=== PATIENT | female | born 2000 | race African-American/Black ===

== ENCOUNTER 2022-09-05 20:22 | Emergency (ER) | payer OTHER, SELFPAY ==
--- NOTE | ~2022-09-05 | XR_ITS ---
EXAMINATION: XR FINGER, RIGHT CLINICAL INFORMATION: Fx of 5th finger, Splint placement. COMPARISON: 09/05/2022 TECHNIQUE: 4 views of the right small finger. FINDINGS: Improved alignment of the fracture at the small finger proximal phalangeal base with slight persistent apex volar and apex medial angulation. Soft tissues are swollen. Splint material is in place. No new fractures are identified. XR/XR finger RT min 2V IMPRESSION: Improved alignment of the small finger proximal phalangeal base fracture status post reduction and splinting.
--- NOTE | ~2022-09-05 | XR_ITS ---
EXAMINATION: XR FINGER, RIGHT CLINICAL INFORMATION: Fifth finger fracture COMPARISON: Right hand films earlier this evening one hour ago TECHNIQUE: 3 views of the right fifth digit. FINDINGS: A splint is now in place. There is been no interval change in the appearance of the ulnar and posterior angulated fracture through the base of the proximal phalanx fifth digit. No dislocation is seen. XR/XR finger RT min 2V IMPRESSION: No interval change in the appearance of the fracture through the base of the proximal phalanx fifth digit aside from the presence of a splint.
--- NOTE | ~2022-09-05 | XR_ITS ---
EXAMINATION: XR HAND, RIGHT CLINICAL INFORMATION: Fifth digit dislocation. COMPARISON: None TECHNIQUE: PA, lateral, and oblique views of the right hand. FINDINGS: Comminuted fracture of the proximal fifth phalanx with posterior angulation of the distal fracture fragment. No other fractures. Carpal rows maintained. Soft tissue swelling/hematoma around the fracture site. No unexpected radiopaque foreign bodies. XR/XR hand RT 2V IMPRESSION: Comminuted fracture of the proximal fifth phalanx.
[2022-09-05 20:25] VITALS: BP 132/78; PULSE 69; RESP 18; TEMP 36.8; O2SAT 100; BMI 29.9
--- NOTE | 2022-09-05 20:28 | ED_ITS ---
HPI - Extremity Problem General Chief complaint: Extremity Injury, Upper <ELVA Frost - Last Filed: 09/05/22 20:29> Stated complaint: right hand dislocated finger <ELVA Frost - Last Filed: 09/05/22 20:29> Time Seen by Provider: 09/05/22 21:08 <ELVA Frost - Last Filed: 09/05/22 20:29> Source: patient <Jory Guzman MD - Last Filed: 09/05/22 22:09> Mode of arrival: ambulatory <Jory Guzman MD - Last Filed: 09/05/22 22:09> History of Present Illness HPI Narrative: 22-year-old female who presents after sustaining a basketball injury and complaining of pain in swelling at her right 5th digit as well as the removal of her fingernail from the 4th digit. <Jory Guzman MD - Last Filed: 09/05/22 22:09> Related Data Allergies/Adverse reactions: Allergies Allergy/AdvReac Type Severity Reaction Status Date / Time No Known Allergies Allergy Verified 09/05/22 20:28 <ELVA Frost - Last Filed: 09/05/22 20:29> Review of Systems Review of Systems: Pertinent positives and negatives as stated in HPI <Jory Guzman MD - Last Filed: 09/05/22 22:09> PMFSH Past Medical History Source: nursing notes reviewed <Jory Guzman MD - Last Filed: 09/05/22 22:09> Social History Social History: Social History Advance Directives: No <ELVA Frost - Last Filed: 09/05/22 20:29> Physical Exam Vital Signs: Vital Signs: Last Vital Signs Temp 98.3 F 09/05/22 20:25 Pulse 69 09/05/22 20:25 Resp 18 09/05/22 20:25 BP 132/78 09/05/22 20:25 Pulse Ox 100 09/05/22 20:25 O2 Del Method 09/05/22 20:25 BMI result Body Mass Index 29.9 <ELVA Frost - Last Filed: 09/05/22 20:29> Vital Signs: Last Vital Signs Temp 98.3 F 09/05/22 20:25 Pulse 69 09/05/22 20:25 Resp 18 09/05/22 20:25 BP 132/78 09/05/22 20:25 Pulse Ox 100 09/05/22 20:25 O2 Del Method 09/05/22 20:25 BMI result Body Mass Index 29.9 VITAL SIGNS: Reviewed. GENERAL: Well developed, well nourished, in no acute distress. HEAD: Normocephalic/atraumatic EYES: PERRLA, EOMI LUNGS: Normal breath sounds. CARDIOVASCULAR: Regular rate and rhythm without noted murmurs ABDOMEN: Soft, non-tender, non-distended with bowel sounds. RIGHT HAND: Deformity at right 5th proximal phalanx, missing nail at right 4th nail bed. NEUROLOGIC: Alert and oriented x 4. <Jory Guzman MD - Last Filed: 09/05/22 22:09> Course Course Course Narrative: RME performed by Montse Walker PA-C. Patient is a 22 year old female p resenting to the emergency department with right 5th finger pain. Patient was playing basketball when she dislocated her right 5th finger. XR ordered. Patient placed back in the waiting room pending results and room ravailability. <ELVA Frost - Last Filed: 09/05/22 20:29> Medical Decision Making Medical Decision Making MDM Narrative: 22-year-old female with displaced fracture of right 5th proximal phalanx that was reduced after digital block applied. Splint was placed in a modified ulnar gutter fashion extending from hypothenar to beyond the right 5th digit in a slightly flexed position at the MCP. Bacitracin applied to nailbed of 4th d igit with dressing applied. Initial x-ray demonstrated that the displaced fracture was then deviated to the ulnar side, decision was made to robby splint with the ring finger and will definitely refer to orthopedics as I think this fracture will not remained stable for the duration of the healing and may require intervention. <Jory Gumzan MD - Last Filed: 09/05/22 22:09> Consult Healthcare Provider Management of the patient was discussed with: Instrument And Electrical Technician <Jory Guzman MD - Last Filed: 09/05/22 22:09> 2200: I discussed the case with the on-call orthopedic PA and provided the demographics for the patient cell that she can be scheduled for an appointment and I discussed the fact that I felt pains may be warranted given the relative instability of the reduction. <Jory Guzman MD - Last Filed: 03/21 22:09> Radiology Impression Radiologist Impression: My interpretation is in agreement with radiologist impression of the imaging study. <Jory Guzman MD - Last Filed: 09/05/22 22:09> Procedures Orthopedic Fracture Reduction Fracture #1: Time Out Performed: No <Jory Guzman MD - Last Filed: 09/05/22 22:09> Side: right <Jory Guzman MD - Last Filed: 09/05/22 22:09> Fracture Reduction Location: finger <Jory Guzman MD - Last Filed: 09/05/22 22:09> Analgesia: nerve block <Jory Guzman MD - Last Filed: 09/05/22 22:09> Technique: direct manipulation and traction/counter-traction <Jory Guzman MD - Last Filed: 09/05/22 22:09> Post Reduction X-rays Demonstrate: acceptable reduction <Jory Guzman MD - Last Filed: 09/05/22 22:09> Post-reduction neuro exam: intact <Jory Guzman MD - Last Filed: 09/05/22 22:09> Post-reduction vascular exam: intact <Jory Guzman MD - Last Filed: 09/05/22 22:09> Splint Applied: Yes <Jory Guzman MD - Last Filed: 09/05/22 22:09> Patient Tolerated Procedure: well <Jory Guzman MD - Last Filed: 09/05/22 22:09> Additional Comments: 5ml lidocaine instilled for digital block <Jory Guzman MD - Last Filed: 09/05/22 22:09> Discharge Plan Discharge Clinical Impression: Displaced fracture of proximal phalanx of finger of right hand <ELVA Frost - Last Filed: 09/05/22 20:29> Patient Disposition: Home, Self-Care <ELVA Frost - Last Filed: 09/05/22 20:29> Instructions: Closed Reduction (ED), Finger Fracture (ED), Splint Care (ED) <ELVA Frost - Last Filed: 09/05/22 20:29> Additional Instructions: 1. Tylenol 1000 mg, orally, every 6 hours as needed for pain control. Do not exceed 4000 mg within 24 hours. 2. Ibuprofen 400 mg, orally with milk or food, every 6 hours as needed for pain control. You may take this medication with Tylenol for improved symptom relief. 3. Elevation of the extremity and application of ice will be additional friends in pain control, as well as control of swelling. 4. You have been given a referral to follow-up with orthopedics in should call the office on Wednesday, I have already contacted the on-call provider and they are expecting your phone call. Return to the ER for any worsening symptoms. <ELVA Frost - Last Filed: 09/05/22 20:29> Referrals: Lydia Denton MD [Physician] - (22-year-old female, right-hand dominant, with right 5th proximal phalanx fracture, some difficulty in maintaining stability, placed in modified ulnar gutter that included 4th digit for additional stability.) <ELVA Frost - Last Filed: 09/05/22 20:29> Stand Alone Forms: Work/School Release <ELVA Frost - Last Filed: 09/05/22 20:29>
[2022-09-05] MEDS: Acetaminophen 325 MG TABLET 975 MG PO (22:19)
[2022-09-05] MEDS: Ibuprofen 400 MG TABLET PO (22:20)
[2022-09-05] MEDS: Lidocaine HCl 1 % MPF 2 ML VIAL 4 ML INFILTRATI (22:21)
== END 2022-09-05 22:31 | disposition home or self-care (01) ==
PROVIDERS: Emergency Provider Student in an Organized Health Care Education/Training Program
DX: S62.616A Displaced fracture of proximal phalanx of right little finger, initial encounter for closed fracture (principal); X50.9XXA Other and unspecified overexertion or strenuous movements or postures, initial encounter; Y93.67 Activity, basketball; Y92.310 Basketball court as the place of occurrence of the external cause; Y99.9 Unspecified external cause status
CPT/HCPCS: 26725; 64450; 73120; 73140; 99283; 99284

== ENCOUNTER 2022-09-07 14:25 | Outpatient (REF) | payer OTHER, SELFPAY | END 2022-09-07 14:26 | disposition home or self-care (01) | LOC: HO.HOSX 14:25 | PROVIDERS: Visit Provider Orthopaedic Surgery | DX: Z13.89 Encounter for screening for other disorder (principal) ==

== ENCOUNTER 2022-09-08 10:48 | Outpatient (REF) | payer OTHER, SELFPAY ==
--- NOTE | ~2022-09-08 | XR_ITS ---
EXAMINATION: XR HAND, RIGHT CLINICAL INFORMATION: Pain in right hand. Prior fifth proximal phalanx fracture. COMPARISON: 09/05/2022. TECHNIQUE: PA, lateral, and oblique views of the right hand. FINDINGS: Overlying splint removed. The mildly comminuted oblique fracture at the base of the fifth proximal phalanx is again demonstrated with residual ulnar angulation of the distal bone similar to the postreduction images of 09/05/2022. No significant manifestations of healing are seen at this time. The bones of the hand are otherwise unremarkable. Cosmetic radiopaque densities are seen in the third digit nail XR/XR hand RT min 3V IMPRESSION: Mildly angulated fracture base fifth proximal phalanx is similar to the postreduction images of 09/05/2022.
== END 2022-09-08 10:49 | disposition home or self-care (01) ==
LOC: HO.HOSX 10:48
PROVIDERS: Visit Provider Orthopaedic Surgery
DX: S62.616A Displaced fracture of proximal phalanx of right little finger, initial encounter for closed fracture (principal); X58.XXXA Exposure to other specified factors, initial encounter; Y93.9 Activity, unspecified; Y92.9 Unspecified place or not applicable; Y99.9 Unspecified external cause status
CPT/HCPCS: 73130; 99202

== ENCOUNTER 2022-09-14 07:53 | Day surgery (SDC) | payer OTHER, SELFPAY ==
--- NOTE | 2022-09-11 10:27 | P.CONAN_ITS ---
Documented by User: Charo Chandler NP 09/11/22 10:27 HPI - Anesthesia Eval Consult details Narrative: 22yo F for Right Small Finger Fx Closed Pinning verses ORIF [facility] Active Problems Active Problems: All Active Problems (Updated 09/08/22 @ 13:14 by Lydia Denton MD) Fracture of proximal phalanx of right little finger (Acute) Surgical History Surgical History Hx of section Social History Social History Patient Tobacco Use Status: Never used Tobacco Substance Use Frequency: Occasionally Are you DNR?: No Advance Directives: No Advance Directives Information Provided: Yes Nutrition Risks: No Nutritional Risk FDLMP: 08/26/22 Current occupational status: employed Current occupation: residential counselor/ rt hand Meds Allergies Allergy/AdvReac Type Severity Reaction Status Date / Time No Known Allergies Allergy Verified 09/14/22 07:59 Home Medications Medication Instructions Recorded Confirmed Last Taken Type No Known Home Meds 09/08/22 09/08/22 Unknown History Exam Exam Date and Time: September 11, 2022 1027 Assessment and Plan Assessment Anesthesia Assessment: Chart Reviewed Documented by User: Cristian Bazan MD 09/14/22 08:13 PMF Family History Family history of problems with anesthesia: No Surgical History Surgical History Hx of section History of Problems with Anesthesia: No Social History Social History Patient Tobacco Use Status: Never used Tobacco Substance Use Frequency: Occasionally Are you DNR?: No Advance Directives: No Advance Directives Information Provided: Yes Nutrition Risks: No Nutritional Risk FDLMP: 08/26/22 Current occupational status: employed Current occupation: residential counselor/ rt hand Meds Allergies Allergy/AdvReac Type Severity Reaction Status Date / Time No Known Allergies Allergy Verified 09/14/22 07:59 Home Medications Medication Instructions Recorded Confirmed Last Taken Type No Known Home Meds 09/08/22 09/08/22 Unknown History Exam Airway Mallampati Class: II TM Dist: >3cm Neck ROM: Full Heart: rrr Lungs: cta Assessment and Plan Final Anesthetic Review Family History of Problems with Anesthesia: No History of Problems with Anesthesia: No ASA Class: I Final Preanesthetic Review: No Changes in Pt Med Stat, Meds/Allgs Chart Reviewed, Consent Obtained/Reviewed and Anes Risks/Benef Reviewed Patient Risk: Low Procedure Risk: Low Anesthetic Plan Anesthetic Plan: GA Disposition: Standard PACU
--- NOTE | ~2022-09-14 | FL_ITS ---
EXAMINATION: XR FLUOROSCOPY WITH IMAGES CLINICAL INFORMATION: Fracture fifth proximal phalanx COMPARISON: Radiographs right hand 09/08/2022, 09/05/2022 TECHNIQUE: Fluoroscopy Supervised By: Dr. Lydia Denton. Fluoroscopy Time: 17 seconds. Cumulative Dose: 0.4212 mGy. DAP: 0.0255 Gycm2. Images: 3. FINDINGS: Mildly angulated fracture base fifth proximal phalanx is reduced with 2 orthopedic pins. Alignment fracture fragments is improved, near-anatomic. No dislocation. Hardware intact. FL/FL guidance in OR IMPRESSION: Status post reduction with pinning fifth proximal phalanx fracture.
[2022-09-14 08:08] VITALS: BMI 29.9
[2022-09-14 08:16] LABS: UPreg QC Valid YES; Urine Pregnancy NEGATIVE (NEGATIVE)
[2022-09-14] MEDS: Lactated Ringers 1,000 ML 100 ML IVCONT (08:17)
--- NOTE | 2022-09-14 08:20 | MHC.SHP ---
Pre-Procedural Eval Section A Date of Service: 09/14/22 The patient is an INPATIENT: No Changes since office visit: No Cold of Flu in the past 2 weeks, No New Medical Problems, No Changes in Medication and No Patient answered all questions The History & Physical has been completed within 30 days and I have reviewed it.: Yes Section B Chief Complaint: Displaced fracture of proximal phalanx of right Allergies: Allergies Allergy/AdvReac Type Severity Reaction Status Date / Time No Known Allergies Allergy Verified 09/14/22 07:59 Plan I have reviewed the history and physical and performed a pertinent physical examination on my patient. No changes have occurred unless specified. Time Spent With Patient Time: Total time managing care of this patient today ____ minutes.
--- NOTE | 2022-09-14 08:20 | W.PM.OPN ---
Operative Note Operative Note Date of Service: 09/14/22 Narrative: Operative Note Narrative: Preop diagnosis: 1. Right small finger proximal phalanx base fracture Postop diagnosis: Same Procedure: 1. right small finger proximal phalanx fracture CRPP 2. Ulnar nerve block Surgeon: Lydia Denton MD Anesthesia: General Anesthesia Findings: finger fracture Implants: 0.045 K-wires times 2 Tourniquet time: None EBL: Minimal Specimen: None Drains: None Complications: None Disposition: Brought to the recovery room in stable condition Plan: Follow-up in 10-14 days for a wound check, postop radiographs and for placement in a short-arm finger spica cast Anticipate K-wire removal in 4 weeks based on interval bony healing Educate the patient that full fracture healing anticipated in approximately 8-12 weeks. Indications: The patient is 22 years old with right small finger proximal phalanx base fracture . The risks and benefits of operative treatment, including but not limited to risk of damage to blood vessels, nerves, tendons, infection, recurrence, delayed or nonunion of fracture, persistent pain or numbness, incomplete resolution of preoperative symptoms, or need for further surgery were discussed with the patient and they wished to proceed with surgery. Procedure: Once consent was obtained patient was brought back to the operating suite and placed in the operating table in a supine position. . Perioperative antibiotics and general anesthesia was administered by the anesthesia team. A tourniquet was applied to the proximal aspect of the right upper extremity and the limb was prepped and draped in a standard surgical fashion. Tourniquet was not inflated during the case. The FluoroScan was used during the case to assist with our fracture reduction and placement of all implants. A closed reduction was performed on the patient's right small finger proximal phalanx base fracture. A 0.045 K-wire was placed through the ulnar base of the proximal phalanx. This was advanced across the fracture site and into the shaft. A 2nd 0.045 K-wire was placed through the radial base of the proximal phalanx and similarly advanced across the fracture site and into the shaft. Fracture alignment was assessed for both angular and rotational malalignment. Once satisfied with our fracture reduction and implant placement, the K-wires were bent and cut short and pin caps applied. Final fluoroscopic images were then obtained. The wounds were copiously irrigated with normal saline. An ulnar nerve block was then performed by infiltrating about the ulnar nerve at the wrist with some 0.5% plain ropivacaine for postop pain control. A Sterile dressing and short volar splint extending to the forearm was applied. The patient appears to have tolerated the procedure well and with no complications. All digits were well vascularized at the conclusion of the case.
[2022-09-14 08:25] VITALS: BP 109/66; PULSE 74; RESP 18; TEMP 36.6; O2SAT 96
[2022-09-14 09:25] VITALS: BP 110/64; PULSE 97; RESP 16; TEMP 36.4; O2SAT 97
[2022-09-14 09:30] VITALS: BP 104/54; PULSE 79; RESP 16; O2SAT 99
[2022-09-14 09:35] VITALS: BP 107/64; PULSE 72; RESP 16; O2SAT 99
[2022-09-14 09:40] VITALS: BP 105/61; PULSE 66; RESP 16; TEMP 36.1; O2SAT 98
[2022-09-14] MEDS: Acetaminophen 325 MG TABLET 650 MG PO (09:40)
[2022-09-14] MEDS: oxyCODONE HCl Immed Release 5 MG TABLET PO (09:43)
[2022-09-14 09:55] VITALS: BP 96/64; PULSE 59; RESP 16; TEMP 36.1; O2SAT 98
== END 2022-09-14 10:49 | disposition home or self-care (01) ==
PROVIDERS: Nurse Practitioner; Visit Provider Orthopaedic Surgery
PROC: (CPT 26727; principal; 2022-09-14 09:20)
DX: S62.616A Displaced fracture of proximal phalanx of right little finger, initial encounter for closed fracture (principal); S61.304A Unspecified open wound of right ring finger with damage to nail, initial encounter; X58.XXXA Exposure to other specified factors, initial encounter; Y93.67 Activity, basketball; Y92.9 Unspecified place or not applicable; Y99.8 Other external cause status
CPT/HCPCS: 26727; 81025; J0690; J1100; J1885; J2405; J2795

== ENCOUNTER 2022-09-25 18:24 | Emergency (ER) | payer OTHER, SELFPAY ==
[2022-09-25 18:35] VITALS: BP 112/72; PULSE 68; RESP 18; TEMP 36.1; O2SAT 99; BMI 30.1
--- NOTE | 2022-09-25 18:37 | ED_ITS ---
HPI - General Adult General Chief complaint: General Medical Stated complaint: previous hand surgery, needs to be rewrapped? Time Seen by Provider: 09/25/22 18:52 Source: patient Mode of arrival: ambulatory Limitations: no limitations History of Present Illness HPI narrative: Patient is a 22 year old assigned female at with a history of a right 5th phalanx fracture with a surgery 2 weeks ago for pin placement presenting to the emergency department today for a new splint. Patient states that she got her splint wet and it cracked in half and now she needs a new splint. Patient denies any dizziness, lightheadedness, abdominal pain, nausea, vomiting, fever, chills, blurry vision, double vision, loss of vision, chest pain, difficulty breathing, shortness of breath, back pain, night sweats, pain with urination, increased urinary frequency, increased urinary urgency, blood in her urine or stool, syncope or a near syncopal episode, recent trauma or falls, bowel incontinence, bladder incontinence, bowel retention, bladder retention, or any other complaints at this time. Onset (ago): hour(s) Location: right and upper extremity Radiation: non-radiation Severity: mild Severity scale (1-10): 1 Relieving factors: none Exacerbating factors: none Associated symptoms: denies other symptoms Treatments prior to arrival: none Related Data Previous Rx's Medication Instructions Recorded hydrocodone 5 mg-acetaminophen 325 1 - 2 tab PO Q6H PRN pain #20 tabs 09/14/22 mg tablet Allergies Allergy/AdvReac Type Severity Reaction Status Date / Time No Known Allergies Allergy Verified 09/14/22 07:59 Review of Systems Constitutional: Constitutional: Reports no additional constitutional complaints, Denies chills, Denies fever(s) and Denies night sweats Eyes: Eyes: Reports no additional eye complaints, Denies blurry vision, Denies change in vision, Denies diplopia, Denies eye discharge, Denies loss of vision and Denies eye pain ENT: Denies dizziness Cardiovascular: Cardiovascular: Reports no additional cardiovascular complaints, Denies chest pain, Denies lightheadedness, Denies Loss of Consciousness and Denies dyspnea Respiratory: Respiratory: Reports no additional respiratory complaints and De nies dyspnea Gastrointestinal: Gastrointestinal: Reports no additional gastrointestinal complaints, Denies abdominal pain, Denies melena, Denies hematochezia, Denies change in bowel habits and Denies change in stool character Genitourinary: Genitourinary: Denies hematuria, Denies urinary frequency, Denies dysuria, Denies urinary incontinence, Denies urinary hesitancy and Denies urinary urgency Musculoskeletal: Musculoskeletal: Reports no additional musculoskeletal complaints, Denies numbness and Denies tingling Comments: right 5th phalanx fracture currently in splint Neurologic: Denies dizziness, Denies loss of vision, Denies numbness and Denies tingling Psychiatric: Psychiatric: Reports no additional psychiatric complaints Endocrine: Endocrine: Reports no additional endocrine complaints Hematologic/Lymphatic: Hematologic/Lymphatic: Reports no additional hematologic/lymphatic complaints Allergic/Immunologic: Allergic/Immunologic: Reports no additional allergic/immunologic complaints [facility] Past Medical History Attestation statement: The following information was validated with the patient. Source: old records reviewed and nursing notes reviewed Surgical History Hx of section Social History Social History Patient Tobacco Use Status: Never used Tobacco Advance Directives: No Advance Directives Information Provided: No Current occupational status: employed Current occupation: residential counselor/ rt hand Physical Exam ED Vital Signs: Vital Signs - 24 hr 09/25/22 18:35 Temperature 97.0 F Pulse Rate 68 Respiratory Rate 18 Blood Pressure 112/72 Pulse Oximetry 99 Oxygen Delivery Method Room Air BMI result Body Mass Index 30.1 Const General: cooperative, no acute distress, alert and awake Nutritional Appearance: well nourished Orientation/consciousness: patient oriented x3 Limitations: no limitations [facility] Head: Yes normal to inspection and Yes atraumatic Ears: hearing grossly normal bilaterally and external ears normal General nose exam: Normal external nose present, no nasal discharge noted and no epistaxis Face and sinus: Yes normal facial exam, No abrasion and No laceration Mouth: Normal oral and palatal mucosa present, no drooling and no muffled voice Eyes General: appearance normal, both eyes and all related structures Periorbital: periorbital findings normal Eyelids: Yes eyelids normal Conjunctivae: conjunctivae normal Pupils: Equal, round and reactive pupils present EOM: EOMs intact bilaterally Neck Neck: Yes normal visual inspection, Yes full ROM and Yes no lymphadenopathy Chest Chest palpation & inspection: normal inspection of the chest Resp Effort & Inspection: normal respiratory effort and able to speak in complete sentences Auscultation: clear to auscultation bilaterally Cardio Rate: regular rate Rhythm: regular rhythm GI Inspection: Yes normal to inspection Palpation (GI): Soft to palpation, not firm, nontender, no guarding and not rigid Neuro General: patient oriented x3 and moves all extremities Cranial nerves: Yes Equal, round and reactive pupils present Cognition (Neuro): normal cognition Motor exam (neuro): 5/5 motor strength present throughout Sensory Exam: Normal double simultaneous stimulation for sensation Coordination: [id number] test normal Extrem Other: right hand in modified ulnar splint General: Yes capillary refill normal Psych Appearance: grossly normal Mental Status: mental status grossly normal Affect: normal affect Attitude: cooperative Thought process: Normal thought process present Thought content: Normal thought content present Insight: Good insight present (Psych) Course Course Course Narrative: RME performed by Montse Walker PA-C. Patient is a 22 year old female p resenting to the emergency department with a cracked right hand splint. Patient states that she has a broken right 5th finger and recently had surgery. Patient states that she got the splint wet and it now cracked in half. Patient here for a new splint. Patient placed back in the waiting room pending room availabiltiy. Procedures Orthopedic Splinting/Casting Injury #1: Side: right Upper Extremity Injury Location: hand Upper Extremity Immobilizer: volar splint Medical Decision Making Medical Decision Making MDM Narrative: Patient is a 22 year old assigned female at with a history of right 5th phalanx fracture presenting to the emergency department today for a new splint. Patient's physical exam showed a broken right volar splint but was otherwise unremarkable. Patient's splint was broken further up the arm - the surgical site itself was untouched and dry. I explained my physical exam findings to the patie nt. I answered all questions asked by the patient. Patient's right hand splint was replaced, per procedure note, without incident. I stressed the importance of the patient taking her medication as prescribed. I stressed the importance of the patient following up with her primary care provider and her hand specialist. I stressed the importance of the patient returning to the emergency department immediately if her symptoms were to worsen or if she were to develop any dizziness, shortness of breath, difficulty breathing, chest pain, blurry vision, loss of vision, nausea, vomiting, abdominal pain, fever, chills, back pain, or any other complaints. Patient verbalized agreement and understanding with this treatment plan and discharge. Differential Diagnosis Differential Diagnoses: The differential diagnosis associated with the presentation includes splint replacement, right 5th phalanx fracture Discharge Plan Discharge Clinical Impression: Fracture of proximal phalanx of right little finger Patient Disposition: Home, Self-Care Instructions: Finger Fracture (ED) Additional Instructions: Follow up with your primary care provider. Return to the emergency department immediately if your symptoms worsen or if you develop any dizziness, shortness of breath, difficulty breathing, chest pain, blurry vision, loss of vision, nausea, vomiting, abdominal pain, fever, chills, back pain, or any other complaints. Prescriptions: No Action hydrocodone-acetaminophen 5-325 mg tablet 1 - 2 tab PO Q6H PRN (Reason: pain) Qty: 20 0RF Rx Instructions: Partial Fill upon patient request. [place] [facility] [place] (Call to establish and follow up with a primary care provider. If you already have a primary care provider, please follow up with them. ) [facility] [place]] (Call to establish and follow up with a primary care provider. If you already have a primary care provider, please follow up with them. ) [facility] [place] [facility] Group] (Call to establish and follow up with a primary care provider. If you already have a primary care provider, please follow up with them. ) [facility] [place] [facility] [Provider Group] (Follow up with your hand specialist. ) Print Language: Vincentian
== END 2022-09-25 19:04 | disposition home or self-care (01) ==
PROVIDERS: Emergency Provider Emergency Medicine
DX: S62.616D Displaced fracture of proximal phalanx of right little finger, subsequent encounter for fracture with routine healing (principal); X58.XXXD Exposure to other specified factors, subsequent encounter
CPT/HCPCS: 29125; 99282

== ENCOUNTER 2022-09-29 09:43 | Outpatient (REF) | payer OTHER, SELFPAY ==
--- NOTE | ~2022-09-29 | XR_ITS ---
EXAMINATION: XR HAND, RIGHT CLINICAL INFORMATION: Right hand pain. COMPARISON: 09/14/2022 and studies dating back to 09/05/2022. TECHNIQUE: PA, lateral, and oblique views of the right hand. FINDINGS: Two K wires are seen transfixing fracture of the right 5th proximal phalanx which now appears to have anatomic alignment compared to prior angulated fracture presurgery. No new fractures are appreciated. XR/XR hand RT min 3V IMPRESSION: Placement of two K wires for right 5th proximal phalanx fracture with improved alignment.
== END 2022-09-29 09:44 | disposition home or self-care (01) ==
LOC: HO.HOSX 09:43
PROVIDERS: Visit Provider Orthopaedic Surgery
DX: S62.616D Displaced fracture of proximal phalanx of right little finger, subsequent encounter for fracture with routine healing (principal); X58.XXXD Exposure to other specified factors, subsequent encounter
CPT/HCPCS: 73130

== ENCOUNTER 2022-10-12 11:33 | Outpatient (REF) | payer OTHER, SELFPAY ==
--- NOTE | ~2022-10-12 | XR_ITS ---
EXAMINATION: XR HAND, RIGHT CLINICAL INFORMATION: Pain in right hand COMPARISON: 09/29/2022 TECHNIQUE: PA, lateral, and oblique views of the right hand. XR/XR hand RT min 3V FINDINGS AND IMPRESSION: Again noted is K wire fixation of the transverse fracture of the proximal metaphysis of the proximal phalanx of the fifth digit. Bone fragments are reduced into anatomic position and fracture line is progressively becoming less conspicuous from appropriate healing. Bones have normal alignment throughout the hand and wrist.
== END 2022-10-12 11:34 | disposition home or self-care (01) ==
LOC: HO.HOSX 11:33
PROVIDERS: Visit Provider Orthopaedic Surgery
DX: S62.616A Displaced fracture of proximal phalanx of right little finger, initial encounter for closed fracture (principal)
CPT/HCPCS: 73130

== ENCOUNTER → 2023-03-10 11:13 | Outpatient (BNVA) | payer OTHER, SELFPAY | PROVIDERS: Visit Provider Physician Assistant Surgical ==

== ENCOUNTER 2024-08-31 23:54 | Emergency (ER) | payer SELFPAY ==
[2024-09-01 00:01] VITALS: BP 136/85; PULSE 80; RESP 18; TEMP 36.4; O2SAT 100; BMI 32.8
[2024-09-01 00:34] LABS: MANUAL DIFF FLAG NO
[2024-09-01 00:40] LABS: Basophils Percent Auto 0.3 % (0-2); Eosinophils Percent Auto 0.2 % (0-4); Hematocrit 33.7 % (37.0-47.0); Hemoglobin 10.2 g/dl (12.0-16.0); Imm Gran Abs Auto 0.02 X10*3/uL (0.00-0.03); Imm Gran Pct Auto 0.2 % (0.0-0.4); Lymphocytes Absolute Auto 2.3 X10*3/uL (1.2-4.9); Lymphocytes Percent Auto 26.3 % (20-40); Mean Corpuscular HGB Conc 30.3 g/dl (31.0-35.0); Mean Corpuscular Hemoglobin 22.9 pg (27.0-33.0); Mean Corpuscular Volume 75.6 fL (80.0-98.0); Mean Platelet Volume 11.2 fL (9.4-12.3); Monocytes Absolute Auto 0.8 X10*3/uL (0.1-1.2); Monocytes Percent Auto 9.2 % (2-11); Neutrophils Absolute Auto 5.7 x10*3/uL (2.0-8.3); Neutrophils Percent Auto 63.8 % (45-73); Platelet Count 301 X10*3/uL (160-400); Red Blood Count 4.46 X10*6/uL (4.20-5.50); Red Cell Distribution Width 16.3 % (11.0-16.0); White Blood Count 8.9 X10*3/uL (4.8-10.8)
[2024-09-01 00:43] LABS: Appearance Urine Clear; Color Urine Yellow; Glucose Urine UA Negative (Negative); Leukocyte Esterase Urine Negative (Negative); Nitrite Urine Negative (Negative); PH 6.5 (5.0-9.0); Specific Gravity - Urine >= 1.030 (1.005-1.025); UPreg QC Valid YES; Urine Blood Negative (Negative); Urine Ketones Trace mg/dL (Negative); Urine Pregnancy NEGATIVE (NEGATIVE); Urine Protein Negative (Neg-Trace)
[2024-09-01 00:50] LABS: Alanine Aminotransferase 16 U/L (0-31); Albumin Level 4.3 g/dL (3.5-5.0); Alkaline Phosphatase 62 U/L (39-117); Anion Gap 12 (12-20); Aspartate Amino Transferase 22 U/L (5-31); Bilirubin Total 0.2 mg/dL (0.0-1.0); Blood Urea Nitrogen 11 mg/dL (9-16); Calcium 8.8 mg/dL (8.4-10.2); Carbon Dioxide 22 mmol/L (22-29); Chloride 106 mmol/L (96-108); Creatinine Clr Calc Pharmacy 136.7; Estimated Glomerular Filt Rate > 60; Glucose Random 86 mg/dL (60-115); Potassium 3.5 mmol/L (3.3-5.1); Sodium 136 mmol/L (135-145); Total Protein 7.9 g/dL (6.5-8.0)
--- NOTE | 2024-09-01 01:38 | ED_ITS ---
HPI - Abdominal Pain General Chief Complaint: Abdominal Pain Stated Complaint: stomach/abd pain, possible UTI Time Seen by Provider: 09/01/24 01:37 Source: patient Mode of arrival: ambulatory Limitations: no limitations History of Present Illness ED Provider: HPI narrative: Patient with multiple complaints saying her whole body is hurting with no fever no chills also complaining of vaginal discharge for last few days no fever no chills no upper respiratory symptoms Related Data Previous Rx's ?Medication ?Instructions ?Recorded hydrocodone 5 mg-acetaminophen 325 1 - 2 tab PO Q6H PRN pain #20 tabs 09/14/22 mg tablet metronidazole 500 mg tablet 500 mg PO BID 7 days #14 tabs 09/01/24 Allergies Allergy/AdvReac Type Severity Reaction Status Date / Time No Known Allergies Allergy Verified 09/01/24 00:03 Review of Systems Review of Systems Yes all other systems are reviewed and are negative [facility] Past Medical History Surgical History Hx of section Social History Social History Alcohol intake: current Comment: medicated with po tylenol and oxycodone Patient Tobacco Use Status: Never used Tobacco Smoked in Last 30 Days: No Use of substances other than those prescribed or required for medical reasons: No Advance Directives: No Advance Directives Information Provided: Yes Do you have a plan to hurt others: No Plan Current occupational status: employed 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 Oriented X3. No acute distress. Eyes: PERRLA, No Nystagmus ENT: Pharynx normal. Oral Mucosa moist Neck: Normal inspection. Neck supple. CVS: Normal heart rate and rhythm. Pulses normal. Respiratory: No respiratory distress. Equal air entry bilateral, no wheezing/rales/rhonchi Abdomen: Soft and nontender. Bowel sounds are present, no mass palpable, no CVA tenderness Skin: Skin warm and dry. Normal skin color. Normal skin turgor. Extremities: No lower extremity edema. No calf tenderness Neuro: Oriented X 3. No motor deficit. No sensory deficit.No cerebellar signs , cranial nerves II-XII intact Medical Decision Making Medical Decision Making [facility] Narrative: Patient with multiple complaints treat for vaginal vaginosis samples were collected for STI advised to follow with PCP for other complaints likely muscular pain Lab Data [facility] Lab Attestation statement: I reviewed the patient's lab results. 09/01/24 00:17 09/01/24 00:17 Labs: Lab Results 09/01/24 Range/Units 00:17 WBC 8.9 (4.8-10.8) X10*3/uL RBC 4.46 (4.20-5.50) X10*6/uL Hgb 10.2 L (12.0-16.0) g/dl Hct 33.7 L (37.0-47.0) % MCV 75.6 L (80.0-98.0) fL MCH 22.9 L (27.0-33.0) pg MCHC 30.3 L (31.0-35.0) g/dl RDW 16.3 H (11.0-16.0) % Plt Count 301 (160-400) X10*3/uL MPV 11.2 (9.4-12.3) fL Immature Gran % (Auto) 0.2 (0.0-0.4) % Neut % (Auto) 63.8 (45-73) % Lymph % (Auto) 26.3 (20-40) % Johnston % (Auto) 9.2 (2-11) % Eos % (Auto) 0.2 (0-4) % Baso % (Auto) 0.3 (0-2) % Lymph # (Auto) 2.3 (1.2-4.9) X10*3/uL Johnston # (Auto) 0.8 (0.1-1.2) X10*3/uL Eos # (Auto) 0.0 (0.0-0.4) X10*3/uL Baso # (Auto) 0.0 (0.0-0.2) X10*3/uL Abs Immat Gran (auto) 0.02 (0.00-0.03) X10*3/uL Absolute Neuts (auto) 5.7 (2.0-8.3) x10*3/uL Absolute Nucleated RBC 0.000 (0.0-0.012) X10*3/uL Nucleated RBC % (auto) 0.0 (0.0-0.2) /100WBC Sodium 136 (135-145) mmol/L Potassium 3.5 (3.3-5.1) mmol/L Chloride 106 (96-108) mmol/L Carbon Dioxide 22 (22-29) mmol/L Anion Gap 12 (12-20) BUN 11 (9-16) mg/dL Creatinine 0.64 (0.5-1.4) mg/dL Estim Creat Clear Calc 136.7 Estimated GFR > 60 Random Glucose 86 (60-115) mg/dL Calcium 8.8 (8.4-10.2) mg/dL Total Bilirubin 0.2 (0.0-1.0) mg/dL AST 22 (5-31) U/L ALT 16 (0-31) U/L Alkaline Phosphatase 62 (39-117) U/L Total Protein 7.9 (6.5-8.0) g/dL Albumin 4.3 (3.5-5.0) g/dL Urine Color Yellow Urine Appearance Clear Urine pH 6.5 (5.0-9.0) Ur Specific [place] >= 1.030 H (1.005-1.025) Urine Protein Negative (Neg-Trace) mg/dL Urine Glucose (UA) Negative (Negative) mg/dL Urine Ketones Trace (Negative) mg/dL Urine Blood Negative (Negative) Urine Nitrite Negative (Negative) Ur Leukocyte Esterase Negative (Negative) Urine Test NEGATIVE (NEGATIVE) Discharge Plan Discharge Clinical Impression: Bacterial vaginal infection Patient Disposition: Home, Self-Care Instructions: Bacterial Vaginosis (ED) Additional Instructions: Likely have bacterial vaginosis we collected sample for STDs will let you know the results Prescriptions: New metronidazole 500 mg tablet 500 mg PO BID 7 Days Qty: 14 0RF No Action hydrocodone-acetaminophen 5-325 mg tablet 1 - 2 tab PO Q6H PRN (Reason: pain) Qty: 20 0RF Rx Instructions: Partial Fill upon patient request. Print Language: Stateless
[2024-09-01] MEDS: metroNIDAZOLE 500 MG TABLET PO (02:06)
[2024-09-01 02:31] VITALS: BP 136/85; PULSE 80; RESP 18; TEMP 36.4; O2SAT 100
[2024-09-01 11:32] LABS: Bacterial Vaginosis PCR POSITIVE (Negative); Candida Group PCR NOT DETECTED (Not Detect); Candida glab krusei PCR NOT DETECTED (Not Detect); Trichomonas vaginalis PCR NOT DETECTED (Not Detect)
[2024-09-01 12:20] LABS: CT PCR NOT DETECTED (Not Detect.); NG PCR NOT DETECTED (Not Detect.)
== END 2024-09-01 02:39 | disposition home or self-care (01) ==
PROVIDERS: Emergency Provider Internal Medicine
DX: N76.0 Acute vaginitis (principal)
CPT/HCPCS: 36415; 80053; 81003; 81025; 81515; 85025; 87491; 87591; 99283; 99284